=== PATIENT | female | born 1965 | race Caucasian/White ===

== ENCOUNTER 2020-03-02 14:04 | Emergency (ER) | payer BC, OTHER, SELFPAY ==
[2020-03-02 14:15] VITALS: BP 148/86; PULSE 80; RESP 18; TEMP 37.3; O2SAT 100
--- NOTE | 2020-03-02 14:21 | ED.ANIMALBIT ---
HPI - Animal Bite General Chief Complaint: Animal Bite Stated Complaint: dog bite Time Seen by Provider: 03/02/20 14:21 Source: patient Mode of arrival: ambulatory Limitations: no limitations History of Present Illness HPI narrative: Dahlia Thomas is a 54 yo female with a PMH of high cholesterol, depression, diabetes, hypothyroid, HTN, who comes to express care with dog bite to L forearm. It occurred today POA. Mild swelling around bite geovany; minor soft tissue swelling but able to move distal wrist and fingers, moderate amount of pain pt is a Diabetic and has survived breast cancer x2. Diabetes is relatively well controlled at this time Related Data Home Medications Medication Instructions Recorded Confirmed insulin glargine 100 unit/mL (3 20 unit SUB-Q DAILY 03/22/19 12/20/19 mL) subcutaneous pen metoprolol tartrate 100 mg tablet 100 mg PO Q12H 03/22/19 12/20/19 fexofenadine 180 mg tablet 180 mg PO DAILY PRN 07/18/19 12/20/19 Allergies Allergy/AdvReac Type Severity Reaction Status Date / Time carisoprodol Allergy Unknown Numbness Verified 03/02/20 14:28 tamoxifen Allergy Unknown Difficulty Verified 03/02/20 14:28 breathing Review of Systems Review of Systems: Narrative: CONSTITUTIONAL: Denies fever, chills, sweats. EYES: Denies visual changes, redness, discharge. ENT: Denies rhinorrhea, congestion, sore throat, otalgia. CARDIOVASCULAR: Denies chest pain, palpitations, edema. RESPIRATORY: Denies dyspnea, wheezing, cough GASTROINTESTINAL: Denies abdominal pain, nausea, vomiting, diarrhea. GENITOURINARY: Denies dysuria, hematuria, abnormal discharge SKIN: Denies rash or itching. Bite geovany around left forearm 8 teeth kothari to 1 on the dorsal and medial side oozing blood NEUROLOGIC: Denies numbness, or focal weakness. PSYCHIATRIC: Denies anxiety or depression. [facility] Past Medical History Medical History Fatty liver Impaired fasting glucose Pure hypertriglyceridemia Recurrent breast cancer (07/30/18) Type 2 diabetes mellitus without complication, with long-term current use of insulin Yeast vaginitis Surgical History Surgical History H/O bilateral mastectomy Family History Family History Grandparent Diabetes mellitus Acute myocardial infarction Family history of malignant neoplasm Mother Family history of hypercholesterolemia, Onset Age: 76 Hypertension, Onset Age: 76 Father Family history of hypercholesterolemia, Onset Age: 77 Hypertension Other Family history of malignant neoplasm of breast Social History Social History Smoking status: Never smoker Alcohol intake: never Comments My nurse Exam Narrative: Exam Narrative: GENERAL: This is a well-nourished, well-developed patient, in mild distress. HEAD: normocephalic, atraumatic. EYES: P Sclera clear/white. Vision is grossly intact. EARS: External ears normal, a Hearing grossly intact. NOSE: External nose normal without nasal discharge, nares without redness, no rhinorrhea. THROAT: Mucous membranes moist, NECK: Neck supple, CARDIOVASCULAR: Regular rate and rhythm without murmurs, gallops, or rubs. RESPIRATORY: Clear to auscultation. Breath sounds equal bilaterally. No wheezes, rales, or rhonchi. GASTROINTESTINAL: Abdomen soft, SKIN: warm, intact with 8th kothari from dog on left forearm close to elbow, medial side and dorsal side continue to ooze blood, intact, minimal ecchymosis NEURO: awake, alert, and oriented to person, place and time. There were no obvious focal neurologic abnormalities. Steady gait EXTREMITIES: Normal range of motion. L arm stiff, able to move wrist, executive asst strength equal BACK: Nontender without deformity Course Course Emergency Course: Patient presented for dog bite of lef
[2020-03-02] MEDS: TETANUS,DIPHTHERIA,AC PERTUSSIS ADULT (0.5 ML) BOOSTRIX IM (14:48)
== END 2020-03-02 15:03 | disposition home or self-care (01) ==
PROVIDERS: Emergency Provider Nurse Practitioner; PCP Family Medicine
DX: S51.852A Open bite of left forearm, initial encounter (principal); W54.0XXA Bitten by dog, initial encounter; Z23 Encounter for immunization; K76.0 Fatty (change of) liver, not elsewhere classified; E11.9 Type 2 diabetes mellitus without complications; E78.00 Pure hypercholesterolemia, unspecified; E03.9 Hypothyroidism, unspecified; I10 Essential (primary) hypertension; Z85.3 Personal history of malignant neoplasm of breast; Z90.13 Acquired absence of bilateral breasts and nipples
CPT/HCPCS: 90471; 90715; 99213; G0463

== ENCOUNTER 2020-03-22 06:58 | Outpatient (NON) | payer BC, OTHER, SELFPAY ==
[2020-03-22 18:22] LABS: SARS-CoV-2 RNA PCR Negative
== END 2020-03-22 06:59 ==
PROVIDERS: PCP Family Medicine; Visit Provider Family Medicine
DX: R51.9 Headache, unspecified (principal); Z20.828 Contact with and (suspected) exposure to other viral communicable diseases
CPT/HCPCS: 87635; C9803; U0003

== ENCOUNTER 2021-08-22 12:04 | Emergency (ER) | payer BC, SELFPAY ==
[2021-08-22] VITALS (11 sets, daily range): BP systolic 102–136; BP diastolic 70–90; PULSE 64–73; RESP 17–21; TEMP 36.4; O2SAT 94–100
--- NOTE | 2021-08-22 12:34 | ECG_ITS ---
Measurements Intervals [place] Rate: 65 P: 34 [place]: 202 QRS: -26 QRSD: 101 T: 9 QT: 408 QTc: 427 Interpretive Statements SINUS RHYTHM BORDERLINE AV CONDUCTION DELAY VOLTAGE CRITERIA FOR LVH BORDERLINE ECG Electronically Signed On 08-22-2021 13:05:58 CDT by Armando Mcdaniel D.O.
[2021-08-22 12:52] LABS: Basophils Absolute Auto 0.1 K/mm3 (0.0-0.1); Basophils Percent Auto 0.6 % (0.2-1.2); Eosinophils Absolute Auto 0.2 K/mm3 (0-0.3); Eosinophils Percent Auto 2.1 % (0-4.4); Hematocrit 44.1 % (37.0-47.0); Hemoglobin 14.2 g/dL (12.0-15.0); Immature Granulocyte Absolute 0.03 K/mm3 (0.00-0.031); Immature Granulocyte Percent A 0.3 % (0-0.5); Lymphocytes Absolute Auto 2.17 K/mm3 (0.9-3.2); Lymphocytes Percent Auto 25.2 % (18.3-44.2); Mean Corpuscular HGB Conc 32.2 g/dl (32-36); Mean Corpuscular Hemoglobin 30.3 pg (26-34); Mean Platelet Volume 9.3 fl (7.4-10.4); Monocytes Absolute Auto 0.6 K/mm3 (0.1-0.6); Monocytes Percent Auto 6.6 % (2.6-8.5); Neutrophils Absolute Auto 5.6 K/mm3 (1.3-6.7); Neutrophils Percent Auto 65.2 % (45.5-73.1); Platelet Count Result 316 k/mm3 (150-375); Red Blood Count 4.69 M/mm3 (4.2-5.4); Red Cell Distribution Width 13.5 % (11.5-14.5); White Blood Count 8.6 K/mm3 (4.5-10.0)
[2021-08-22 13:05] LABS: Alanine Aminotransferase 161 U/L (4-35); Albumin Level 4.3 g/dL (3.5-5.1); Alkaline Phosphatase 62 U/L (38-126); Anion Gap 10 mmol/L (8-16); Aspartate Amino Transferase 162 U/L (14-36); Bilirubin,Total 0.3 mg/dL (0.2-1.3); Blood Urea Nitrogen 14 mg/dL (7-17); Carbon Dioxide 22 mmol/L (22-30); Chloride 104 mmol/L (98-107); Estimated CRCL calculation 103 ml/min; Estimated Glomerular Filt Rate > 60; Glucose 137 mg/dL (65-110); Lipase 86 U/L (23-300); Potassium 4.3 mmol/L (3.4-5.0); Sodium 136 mmol/L (137-145)
[2021-08-22 13:16] LABS: NT Pro B Type Natriuretic Pept 34 pg/mL (5-100); Troponin I < 0.012 ng/mL (0.000-0.034)
[2021-08-22 13:22] LABS: INR 1.1; Prothrombin Time 13.7 Seconds (11.1-14.7)
[2021-08-22 14:32] LABS: Appearance Urine Clear (Clear); Bilirubin Urine Negative (Negative); Blood Urine Negative (Negative); Color Urine Yellow (Yellow); Glucose Urine UA 3+ mg/dL (Negative); Ketones Urine Negative (Negative); Leukocyte Esterase Ur 1+ LEU/UL (Negative); Nitrate Urine Negative (Negative); Protein Urine Negative (Negative); Specific Grav Ur <= 1.005 (1.001-1.035); Urobilinogen Urine 0.2 mg/dL (<2.0)
[2021-08-22 14:41] LABS: Add Urine Microscopic? YES; Bacteria Urine Trace /hpf; RBC Urine 0-2 /hpf (0-2); Squamous Epithelial Cell Urine Few /hpf (Few); WBC Urine 0-3 /hpf
[2021-08-22 14:52] LABS: SARS-CoV-2 RNA PCR Negative
--- NOTE | 2021-08-22 15:04 | ED.GENADULT ---
HPI - General Adult General Chief complaint: Unspecified Stated complaint: heart burn, sweats Time Seen by Provider: 08/22/21 12:34 Source: patient Mode of arrival: ambulatory Limitations: no limitations History of Present Illness HPI narrative: 55-year-old with a history of diabetes was recently started on Ozempic, hypertension here with complaints of not feeling well for past few days. Patient states that she saw her doctor this morning complained of chest pain with some diaphoresis patient was later referred to the ER. She denies any shortness of breath. No history of nausea or vomiting. Onset (ago): day(s) (2) Radiation: non-radiation Severity: mild Pain Consistency: constant Relieving factors: none Exacerbating factors: none Associated symptoms: denies other symptoms Related Data Home Medications Medication Instructions Recorded Confirmed fexofenadine 180 mg tablet 180 mg PO DAILY PRN 07/18/19 08/22/21 omeprazole 20 mg capsule,delayed 20 mg PO DAILY 08/02/21 08/22/21 release semaglutide 0.25 mg SUBCUT WEEKLY 08/02/21 08/22/21 Allergies Allergy/AdvReac Type Severity Reaction Status Date / Time carisoprodol Allergy Unknown Numbness Verified 08/22/21 12:33 tamoxifen Allergy Unknown Difficulty Verified 08/22/21 12:33 breathing Review of Systems Review of Systems: All systems reviewed & are unremarkable except as noted in HPI and below Constitutional: Constitutional: Reports no additional constitutional complaints Eyes: Eyes: Reports no additional eye complaints ENT: Reports system reviewed and no additional complaints, except as documented Cardiovascular: Cardiovascular: Reports no additional cardiovascular complaints Respiratory: Respiratory: Reports no additional respiratory complaints Gastrointestinal: Gastrointestinal: Reports no additional gastrointestinal complaints Musculoskeletal: Musculoskeletal: Reports no additional musculoskeletal complaints Neurologic: Reports system reviewed and no additional complaints, except as documented [facility] Past Medical History Medical History Atypical chest pain BMI 32.0-32.9,adult Controlled diabetes mellitus with hyperglycemia, with long-term current use of insulin Glucose 213 with hemoglobin A1c 11.0 on 03/17/2021. Glucose 239 with hemoglobin A1c 12.9 on 07/28/2021. Controlled diabetes mellitus with hyperglycemia, without long-term current use of insulin glucose 213 and hemoglobin A1c 11.0 on 03/17/2021 Controlled type 2 diabetes mellitus with hyperglycemia, with long-term current use of insulin Elevated liver enzymes Fatty liver Gastro-esophageal reflux disease without esophagitis Headache Hematuria, microscopic Herpesviral vesicular dermatitis Impaired fasting glucose Obesity (BMI 30.0-34.9) Pharyngitis Pure hypertriglyceridemia Recurrent breast cancer (07/30/18) Yeast vaginitis Surgical History Surgical History H/O bilateral mastectomy Family History Family History Grandparent Diabetes mellitus Acute myocardial infarction Family history of malignant neoplasm Mother Family history of hypercholesterolemia, Onset Age: 76 Hypertension, Onset Age: 76 Father Family history of hypercholesterolemia, Onset Age: 77 Hypertension Other Family history of malignant neoplasm of breast Social History Social History (Updated 08/22/21 @ 11:20 by Asia Collins MA) Smoking status: Never smoker Alcohol intake: never Substance use: never Substance use type: does not use Exam Narrative: GENERAL: Well-appearing, well-nourished, and in no acute distress. HEAD: Normocephalic, atraumatic. EYES: PERRLA and EOMI. NECK: Supple. CHEST: Clear to auscultation. No respiratory distress. HEART: Regular rate and rhythm. No murmur heard. Normal peripheral pulses. ABD
== END 2021-08-22 15:25 | disposition home or self-care (01) ==
PROVIDERS: Emergency Provider Family Medicine; PCP Family Medicine
DX: R07.89 Other chest pain (principal); Z20.822 Contact with and (suspected) exposure to COVID-19; E11.65 Type 2 diabetes mellitus with hyperglycemia; K21.9 Gastro-esophageal reflux disease without esophagitis; E66.9 Obesity, unspecified; Z68.32 Body mass index [BMI] 32.0-32.9, adult; E78.1 Pure hyperglyceridemia; Z85.3 Personal history of malignant neoplasm of breast; Z90.13 Acquired absence of bilateral breasts and nipples; Z79.899 Other long term (current) drug therapy; Z79.84 Long term (current) use of oral hypoglycemic drugs; Z79.4 Long term (current) use of insulin; R94.31 Abnormal electrocardiogram [ECG] [EKG]
CPT/HCPCS: 36415; 80053; 81001; 83690; 83880; 84484; 85025; 85610; 93005; 99284; C9803; U0003; U0005

== ENCOUNTER 2021-11-12 11:50 | Outpatient (RCR) | payer BC, SELFPAY ==
[2021-11-12 13:05] VITALS: BP 126/84; PULSE 100; TEMP 35.5; O2SAT 98
[2021-11-12] MEDS: ACETAMINOPHEN 325 MG TABLET 650 MG PO (13:08)
[2021-11-12] MEDS: FAMOTIDINE 20 MG TABLET PO (13:08)
[2021-11-12] MEDS: diphenhydrAMINE HCl CAP 25 MG CAPSULE PO (13:08)
[2021-11-12] MEDS: BEBTELOVIMAB 175 MG/2 ML VIAL IV PUSH (13:28)
[2021-11-12 14:09] VITALS: BP 116/80; PULSE 86; O2SAT 96
== END 2021-11-12 16:00 ==
LOC: AMCINF 11:50
PROVIDERS: PCP Family Medicine; Referring Provider Nurse Practitioner Family; Visit Provider Internal Medicine Hematology & Oncology
DX: U07.1 COVID-19 (principal); I10 Essential (primary) hypertension; E11.9 Type 2 diabetes mellitus without complications
CPT/HCPCS: A9270; M0222; Q0222

== ENCOUNTER 2022-04-23 14:06 | Inpatient (IN) | payer OTHER, SELFPAY ==
--- NOTE | ~2022-04-23 | CT_ITS ---
EXAMINATION: CT brain wo con DATE: 04/24/2022 17:24 INDICATION: persistent HELLER . TECHNIQUE: Computed tomography (CT) of the head was performed without intravenous contrast. The mA wa s adjusted according to patient size. Iterative reconstruction technique was employed. The dose-lengt h product was 605.33 mGy-cm. COMPARISON: 05/15/2018. FINDINGS: No acute intracranial hemorrhage or extra-axial fluid collection. No hydrocephalus, mass, or herniation. No acute ischemic infarct. Unremarkable dural venous sinus attenuation. No acute osseous abnormality. The aerated spaces are clear. IMPRESSION: No acute intracranial process. Reviewed, dictated and finalized at location [facility]. ITAL INTERN
--- NOTE | ~2022-04-23 | CT_ITS ---
Non-contrast CT scan of the Abdomen and Pelvis Clinical indication: Left flank pain Technique: 5 mm axial scans were obtained through the abdomen and pelvis without intravenous or oral contrast. Dose reduction technique was used on this scan by utilizing automated exposure control and iterative reconstruction technique. The dose-length product (DLP) was 671.75 mGy-cm. COMPARISON: 05/15/2018 Findings: Images through the lung bases reveal right basilar pulmonary scarring or atelectasis. Punctate nonobstructing right renal stone present. No left renal stone. No ureteral stone or hydronep hrosis on either side. The liver, spleen, pancreas, and adrenals appear normal. Cholecystectomy clips present. There is no a ortic aneurysm. There is no evidence of bowel obstruction. Images through the pelvis were performed. There is no evidence of ascites or lymphadenopathy. Urinary bladder unremarkable. No adnexal mass seen. Impression: Punctate nonobstructing right renal stone. Reviewed, dictated and finalized at [facility]. MOUNTER OPERATOR Impression: Punctate nonobstructing right renal stone.
[2022-04-23 14:08] VITALS: BP 143/93; PULSE 123; RESP 20; TEMP 36.7; O2SAT 97
[2022-04-23 14:15] LABS: Glucose Point of Care 370 mg/dl (65-105)
[2022-04-23 15:35] LABS: Influenza A QL RT-PCR Negative (Negative); Influenza B QL RT-PCR Negative (Negative); SARS-CoV-2 RNA PCR Negative
[2022-04-23 15:59] VITALS: BP 140/90; PULSE 113; RESP 18; TEMP 36.4; O2SAT 95
[2022-04-23 16:15] LABS: Glucose Point of Care 377 mg/dl (65-105)
[2022-04-23] MEDS: LACTATED RINGERS 1,000 ML 999 ML IV CONT (21:00)
[2022-04-23 21:29] LABS: Glucose Point of Care 349 mg/dl (65-105)
[2022-04-23 22:11] LABS: Basophils Absolute Auto 0.1 K/mm3 (0.0-0.1); Basophils Percent Auto 0.5 % (0.2-1.2); Eosinophils Percent Auto 0.1 % (0-4.4); Hematocrit 45.1 % (37.0-47.0); Hemoglobin 14.9 g/dL (12.0-15.0); Immature Granulocyte Absolute 0.06 K/mm3 (0.00-0.031); Immature Granulocyte Percent A 0.5 % (0-0.5); Lymphocytes Absolute Auto 1.68 K/mm3 (0.9-3.2); Lymphocytes Percent Auto 15.2 % (18.3-44.2); Mean Corpuscular Hemoglobin 29.9 pg (26-34); Mean Corpuscular Volume 90.6 fl (80-100); Mean Platelet Volume 9.4 fl (7.4-10.4); Monocytes Absolute Auto 1.3 K/mm3 (0.1-0.6); Monocytes Percent Auto 11.4 % (2.6-8.5); Neutrophils Percent Auto 72.3 % (45.5-73.1); Platelet Count Result 285 k/mm3 (150-375); Red Blood Count 4.98 M/mm3 (4.2-5.4); Red Cell Distribution Width 13.4 % (11.5-14.5); White Blood Count 11.1 K/mm3 (4.5-10.0)
[2022-04-23 22:56] LABS: Alanine Aminotransferase 45 U/L (6-35); Albumin Level 4.4 g/dL (3.5-5.1); Alkaline Phosphatase 63 U/L (38-126); Anion Gap 20 mmol/L (8-16); Aspartate Amino Transferase 26 U/L (14-36); Bilirubin,Total 0.8 mg/dL (0.2-1.3); Blood Urea Nitrogen 11 mg/dL (7-17); Calcium 8.9 mg/dL (8.4-10.2); Carbon Dioxide 13 mmol/L (22-30); Chloride 97 mmol/L (98-107); Estimated CRCL calculation 119 ml/min; Estimated Glomerular Filt Rate > 60; Glucose 349 mg/dL (65-110); Potassium 3.9 mmol/L (3.4-5.0); Sodium 130 mmol/L (137-145)
[2022-04-23 23:02] LABS: Add Urine Microscopic? YES; Appearance Urine Clear (Clear); Bilirubin Urine Negative (Negative); Blood Urine 1+ (Negative); Color Urine Yellow (Yellow); Glucose Urine UA 3+ mg/dL (Negative); Ketones Urine 3+ mg/dL (Negative); Leukocyte Esterase Ur 2+ LEU/UL (Negative); Nitrate Urine Positive (Negative); Protein Urine 1+ mg/dL (Negative); Specific Grav Ur 1.025 (1.001-1.035); Urobilinogen Urine 0.2 mg/dL (<2.0)
[2022-04-23 23:10] LABS: Bacteria Urine 2+ /hpf; Mucus Urine Rare /lpf; RBC Urine 21-50 /hpf (0-2); Squamous Epithelial Cell Urine Few /hpf (Few); WBC Urine >75 /hpf
[2022-04-23] MEDS: INSULIN HUMAN REGULAR (*BKC) 100 UNITS/ML 9 UNITS IV PUSH (23:28)
[2022-04-23] MEDS: METOCLOPRAMIDE HCL INJ 10 MG/2 ML VIAL IV PUSH (23:28)
[2022-04-23 23:36] LABS: Beta-Hydroxybutyrate/Acetoacetate 4.24 mmol/L (0.02-0.27)
--- NOTE | 2022-04-23 23:39 | PM.IMHP ---
H&P: HPI History of Present Illness Date/Time: 04/23/22 23:39 Chief Complaint: Abdominal pain Narrative: This is a 56-year-old female with past medical history significant for insulin-dependent diabetes mellitus, hypothyroidism, hypertension, gastroesophageal reflux disease, obesity, hypertriglyceridemia, recurrent breast cancer. Patient presents to the emergency room due to pain and burning with urination, thirst, hunger, for the last 2 weeks or so, no fevers, no rigors, no chills, no nausea, no vomiting, no cough, no sputum production. Patient was found to have high anion gap acidosis. A urinalysis was significant for numerous WBCs present. Patient is been admitted for further evaluation management and treatment. Review of Systems Review of Systems: Abdominal pain, pain or burning with urination. Constitutional: Constitutional: Denies chills, Denies fatigue, Denies fever(s), Denies malaise, Denies night sweats and Denies weakness Eyes: Eyes: Denies change in vision ENT: Denies dysphagia and Denies odynophagia Cardiovascular: Cardiovascular: Denies chest pain, Denies leg edema, Denies lightheadedness, Denies palpitations and Denies dyspnea on exertion Respiratory: Respiratory: Denies chest congestion, Denies cough, Denies pain on inspiration, Denies dyspnea, Denies dyspnea on exertion and Denies wheezing Gastrointestinal: Gastrointestinal: Denies abdominal pain, Denies dyspepsia, Denies heartburn, Denies nausea and Denies vomiting Genitourinary: Genitourinary: Reports dysuria and Denies flank pain Musculoskeletal: Musculoskeletal: Denies myalgias, Denies joint swelling and Denies muscle weakness Integumentary/Breasts: Skin/Breast: Denies rash Neurologic: Denies vertigo, Denies dizziness, Denies focal weakness and Denies Sensory deficit (Neuro) Psychiatric: Psychiatric: Reports no additional psychiatric complaints and Reports as per HPI Endocrine: Endocrine: Denies cold intolerance, Denies flushing, Denies heat intolerance, Reports polyphagia, Reports polydipsia, Reports polyuria and Denies palpitations Hematologic/Lymphatic: Hematologic/Lymphatic: Reports no additional hematologic/lymphatic complaints and Reports as per HPI Allergic/Immunologic: Allergic/Immunologic: Reports no additional allergic/immunologic complaints and Reports as per HPI [facility] Past Medical History Medical History (Updated 04/24/22 @ 05:13 by Bryn Bills MD) Atypical chest pain BMI 32.0-32.9,adult Controlled diabetes mellitus with hyperglycemia, with long-term current use of insulin Glucose 213 with hemoglobin A1c 11.0 on 03/17/2021. Glucose 239 with hemoglobin A1c 12.9 on 07/28/2021. Controlled diabetes mellitus with hyperglycemia, without long-term current use of insulin glucose 213 and hemoglobin A1c 11.0 on 03/17/2021 Controlled type 2 diabetes mellitus with hyperglycemia, with long-term current use of insulin COVID-19 Elevated liver enzymes Fatty liver Gastro-esophageal reflux disease without esophagitis Headache Hematuria, microscopic Herpesviral vesicular dermatitis Impaired fasting glucose Obesity (BMI 30.0-34.9) Pharyngitis Pure hypertriglyceridemia Recurrent breast cancer (07/30/18) Yeast vaginitis Surgical History Surgical History H/O bilateral mastectomy Family History Family History Grandparent Diabetes mellitus Acute myocardial infarction Family history of malignant neoplasm Mother Family history of hypercholesterolemia, Onset Age: 76 Hypertension, Onset Age: 76 Father Family history of hypercholesterolemia, Onset Age: 77 Hypertension Other Family history of malignant neoplasm of breast Social History Social History Smoking status: Never smoker Alcohol intake: never Substance use: never Substance use type: does not use Meds
--- NOTE | 2022-04-24 01:02 | ED.GENADULT ---
HPI - General Adult General Chief complaint: Recheck/Abnormal Lab/Rx Stated complaint: sent by PCP for kidney issues -hyperglycemia Time Seen by Provider: 04/23/22 21:36 History of Present Illness HPI narrative: Patient states that she has not been feeling well the last few days, has been nauseous, with sinus headache and some pain in her right ear, she also has pain when she urinates and some pain in her left flank. Related Data Home Medications Medication Instructions Recorded Confirmed fexofenadine 180 mg tablet 180 mg PO DAILY PRN allergies 07/18/19 11/12/21 omeprazole 20 mg capsule,delayed 20 mg PO DAILY 08/02/21 11/12/21 release Allergies Allergy/AdvReac Type Severity Reaction Status Date / Time carisoprodol Allergy Unknown Numbness Verified 11/12/21 13:15 tamoxifen Allergy Unknown Difficulty Verified 11/12/21 13:15 breathing Review of Systems Review of Systems: CONST: No fever. HEENT: Congestion, right ear pain C/V: No chest pain RESP: No cough GI: Nausea : Dysuria. M/S: Body aches SKIN: No rash. NEURO: Sinus/frontal headache PSYCH: [No depression] [facility] Past Medical History Medical History Atypical chest pain BMI 32.0-32.9,adult Controlled diabetes mellitus with hyperglycemia, with long-term current use of insulin Glucose 213 with hemoglobin A1c 11.0 on 03/17/2021. Glucose 239 with hemoglobin A1c 12.9 on 07/28/2021. Controlled diabetes mellitus with hyperglycemia, without long-term current use of insulin glucose 213 and hemoglobin A1c 11.0 on 03/17/2021 Controlled type 2 diabetes mellitus with hyperglycemia, with long-term current use of insulin COVID-19 Elevated liver enzymes Fatty liver Gastro-esophageal reflux disease without esophagitis Headache Hematuria, microscopic Herpesviral vesicular dermatitis Impaired fasting glucose Obesity (BMI 30.0-34.9) Pharyngitis Pure hypertriglyceridemia Recurrent breast cancer (07/30/18) Yeast vaginitis Surgical History Surgical History H/O bilateral mastectomy Family History Family History Grandparent Diabetes mellitus Acute myocardial infarction Family history of malignant neoplasm Mother Family history of hypercholesterolemia, Onset Age: 76 Hypertension, Onset Age: 76 Father Family history of hypercholesterolemia, Onset Age: 77 Hypertension Other Family history of malignant neoplasm of breast Social History Social History Smoking status: Never smoker Alcohol intake: never Substance use: never Substance use type: does not use Exam Narrative: EXAMINATION OF ORGAN SYSTEMS/BODY AREAS: Constitutional: Vital signs per nursing GENERAL: Appears quite tired HEAD: Normal with no signs of head trauma. EYES: EOMI, conjunctiva normal ENT: Erythematous right ear, some tenderness to palpation frontal sinuses LUNGS: Nonlabored breathing. HEART: Tachycardic ABD: [Soft], some left CVA tenderness EXT: Normal range of motion SKIN: [No rashes or lesions.] NEURO: [Alert and oriented x 3. No gross focal sensory or strength deficits.] PSYCH: Normal affect Course Vital Signs Vital signs: Vital Signs Temperature 98.1 F 04/23/22 14:08 Pulse Rate 123 H 04/23/22 14:08 Respiratory Rate 20 04/23/22 14:08 Blood Pressure 143/93 H 04/23/22 14:08 Pulse Oximetry 97 04/23/22 14:08 Oxygen Delivery Room Air 04/23/22 14:08 Temperature 97.5 F L 04/23/22 15:59 Pulse Rate 113 H 04/23/22 15:59 Respiratory Rate 18 04/23/22 15:59 Blood Pressure 140/90 04/23/22 15:59 Pulse Oximetry 95 04/23/22 15:59 Oxygen Delivery Room Air 04/23/22 14:08 Medical Decision Making [facility] Narrative Medical decision making narrative: 56-year-old female presenting with several days of symptoms including naus
[2022-04-24 01:05] LABS: Glucose Point of Care 284 mg/dl (65-105)
[2022-04-24] MEDS: INSULIN HUMAN REGULAR (*BKC) 100 UNITS in SODIUM CHLORIDE 0.9% IV 99 ML IV CONT (01:38)
[2022-04-24 01:42] LABS: Anion Gap 13 mmol/L (8-16); Blood Urea Nitrogen 10 mg/dL (7-17); Calcium 8.7 mg/dL (8.4-10.2); Carbon Dioxide 16 mmol/L (22-30); Chloride 99 mmol/L (98-107); Estimated CRCL calculation 144 ml/min; Estimated Glomerular Filt Rate > 60; Glucose 307 mg/dL (65-110); Potassium 3.7 mmol/L (3.4-5.0); Sodium 128 mmol/L (137-145)
[2022-04-24 03:04] LABS: Glucose Point of Care 289 mg/dl (65-105)
[2022-04-24] MEDS: LACTATED RINGERS 1,000 ML 999 ML IV CONT (03:19)
[2022-04-24] MEDS: INSULIN GLARGINE (*BKC) 100 UNITS/ML 22 UNITS SUB-Q (04:00)
[2022-04-24 04:47] LABS: Glucose Point of Care 241 mg/dl (65-105)
[2022-04-24] MEDS: ACETAMINOPHEN 500 MG TABLET 1000 MG PO (05:13)
[2022-04-24] MEDS: SODIUM CHLORIDE 0.9% IV 1,000 ML 100 ML IV CONT ×2 (05:25→21:44)
[2022-04-24 05:28] LABS: Anion Gap 10 mmol/L (8-16); Blood Urea Nitrogen 10 mg/dL (7-17); Calcium 8.4 mg/dL (8.4-10.2); Carbon Dioxide 23 mmol/L (22-30); Chloride 102 mmol/L (98-107); Estimated CRCL calculation 119 ml/min; Estimated Glomerular Filt Rate > 60; Glucose 238 mg/dL (65-110); Potassium 4.1 mmol/L (3.4-5.0); Sodium 135 mmol/L (137-145)
[2022-04-24 05:29] LABS: Beta-Hydroxybutyrate/Acetoacetate 1.11 mmol/L (0.02-0.27)
[2022-04-24 07:14] VITALS: BP 131/76; PULSE 92; RESP 18; TEMP 37.1; O2SAT 98
[2022-04-24 07:49] LABS: Glucose Point of Care 238 mg/dl (65-105)
[2022-04-24 07:52] VITALS: BMI 31.4
--- NOTE | 2022-04-24 08:05 | PC.NURSE ---
This patient Dahlia Thomas admitted to ED 13. oriented to room, call light placed within reach, and admission finished. awaiting room for transfer.
--- NOTE | 2022-04-24 08:30 | PC.NURSE ---
Called Dr. Antoine, he states he does not have this patient.
[2022-04-24 08:39] VITALS: BP 126/81; PULSE 96; RESP 18; O2SAT 100
[2022-04-24 08:44] LABS: Glucose Point of Care 211 mg/dl (65-105)
--- NOTE | 2022-04-24 08:45 | PC.NURSE ---
Called Rosina and she states she would call and figure out who has him
--- NOTE | 2022-04-24 09:00 | PC.NURSE ---
Dr. Moss here and states he will be taking pt. VROB for 650 mg tylenol and diabetic tray
--- NOTE | 2022-04-24 09:04 | PC.NURSE ---
Dr. Dr. Wiley to ask about down grading pt to med surg, pt anion gap is 10, last BS 211.
--- NOTE | 2022-04-24 09:35 | PC.NURSE ---
Addendum entered by Irina Redding RN 04/24/22 10:54: 0835 Original Note: Called Dr. Moss. He is unaware of having this pt as well.
[2022-04-24] MEDS: ACETAMINOPHEN 325 MG TABLET 650 MG PO ×2 (09:58→18:53)
--- NOTE | 2022-04-24 10:50 | PC.NURSE ---
called Dr. Moss for orders on pt. She states that Dr. Antoine now taking pt.
--- NOTE | 2022-04-24 10:59 | PC.NURSE ---
called Dr. Antoine for orders on pt
[2022-04-24] MEDS: cefTRIAXone 2 GM in SODIUM CHLORIDE 0.9% IV 100 ML 200 ML IVPB (11:51)
[2022-04-24 11:52] VITALS: PULSE 95
[2022-04-24] MEDS: METOPROLOL TARTRATE 50 MG TAB 100 MG PO ×2 (11:52→21:47)
[2022-04-24 14:05] LABS: Glucose Point of Care 263 mg/dl (65-105)
[2022-04-24] MEDS: INSULIN ASPART (*BKC) 100 UNITS/ML SUB-Q ×2 (14:07→16:43)
--- NOTE | 2022-04-24 16:09 | ADMGEN ---
This patient, Dahlia Thomas, was admitted to [facility] Surg Room 310-01. Patient/family oriented to hospital policies and general routines including ID bracelet, bed and alarms, visiting hours, pain management, procedures, bathroom and other care routines, personal items, smoking policy, room service/diet, and visiting hours. Information on how to activate the Rapid Response Team has been discussed. Patient/Family are encouraged to report perceived risks to care and to ask questions if they do not understand what they are told or what they should do.
[2022-04-24 16:10] VITALS: BMI 31.4
[2022-04-24 16:30] LABS: Glucose Point of Care 302 mg/dl (65-105)
[2022-04-24 16:39] VITALS: BP 144/74; PULSE 93; RESP 18; TEMP 37.7; O2SAT 94
--- NOTE | 2022-04-24 18:22 | PM.IMHP ---
H&P: HPI History of Present Illness Date/Time: 04/24/22 18:22 [facility] Past Medical History Medical History (Updated 04/24/22 @ 05:13 by Bryn Bills MD) Atypical chest pain BMI 32.0-32.9,adult Controlled diabetes mellitus with hyperglycemia, with long-term current use of insulin Glucose 213 with hemoglobin A1c 11.0 on 03/17/2021. Glucose 239 with hemoglobin A1c 12.9 on 07/28/2021. Controlled diabetes mellitus with hyperglycemia, without long-term current use of insulin glucose 213 and hemoglobin A1c 11.0 on 03/17/2021 Controlled type 2 diabetes mellitus with hyperglycemia, with long-term current use of insulin COVID-19 Elevated liver enzymes Fatty liver Gastro-esophageal reflux disease without esophagitis Headache Hematuria, microscopic Herpesviral vesicular dermatitis Impaired fasting glucose Obesity (BMI 30.0-34.9) Pharyngitis Pure hypertriglyceridemia Recurrent breast cancer (07/30/18) Yeast vaginitis Surgical History Surgical History H/O bilateral mastectomy Family History Family History Grandparent Diabetes mellitus Acute myocardial infarction Family history of malignant neoplasm Mother Family history of hypercholesterolemia, Onset Age: 76 Hypertension, Onset Age: 76 Father Family history of hypercholesterolemia, Onset Age: 77 Hypertension Other Family history of malignant neoplasm of breast Social History Social History Smoking status: Never smoker Second hand tobacco smoke exposure: No Alcohol intake: never Substance use: never Substance use type: does not use Lack of Transportation: No Lack of Food: Never True Current Housing: I Have Housing Concerned About Future Housing: No Difficulty Paying Gas/Electric Bills: No Difficulty Paying for Meds: No Currently Unemployed: No Education: High School Diploma/GED Difficulty w/ Childcare or Family Care: No Spiritual care concerns: No Meds Home Medications and Allergies Home Medications Medication Instructions Recorded Confirmed Type lancets 30 gauge (PigeonlyTouch [place] #100 ea 05/21/19 11/12/21 Rx Plus Lancet) cyclobenzaprine 10 mg tablet 10 mg PO TID PRN muscle spasm #90 11/30/21 01/04/23 Rx tabs levothyroxine 50 mcg tablet 50 mcg PO . Q.a.m. #90 tabs 03/20/21 04/24/22 Rx escitalopram oxalate 20 mg tablet 20 mg PO DAILY #90 tabs 04/09/21 04/24/22 Rx (Lexapro) blood sugar diagnostic #100 ea 06/18/21 11/12/21 Rx pen needle, diabetic 33 gauge x #100 ea 06/18/21 11/12/21 Rx 3/16 (Comfort EZ Pen [place]) blood sugar diagnostic (OneTouch #100 ea 07/09/21 11/12/21 Rx Ultra Test strips) blood-glucose meter (OneTouch #1 ea 07/09/21 11/12/21 Rx Ultra2 Meter) omeprazole 20 mg capsule,delayed 20 mg PO DAILY 08/02/21 04/24/22 History release quetiapine 50 mg tablet 25 mg PO QHS #30 tabs 08/02/21 04/24/22 Rx metoprolol tartrate 100 mg tablet 100 mg PO Q12H #180 tabs 09/10/21 04/24/22 Rx atorvastatin 10 mg tablet 10 mg PO DAILY #90 tabs 11/26/21 04/24/22 Rx amitriptyline 10 mg tablet 20 mg PO .Q.h.s. #180 tabs 11/28/21 04/24/22 Rx telmisartan 40 mg tablet 40 mg PO DAILY #90 tabs 12/10/21 04/24/22 Rx metformin 500 mg tablet,extended 2,000 mg PO DAILY #360 tabs 02/05/22 04/24/22 Rx release 24 hr semaglutide 0.25 mg or 0.5 mg (2 0.25 mg (0.2 mL) subcut WEEKLY 04/23/22 04/24/22 Rx mg/1.5 mL) subcutaneous pen #1.5 mL injector (Ozempic) insulin glargine 100 unit/mL (3 35 unit subcut QAM 04/24/22 04/24/22 History mL) subcutaneous pen (Lantus Solostar U-100 Insulin) Allergies Allergy/AdvReac Type Severity Reaction Status Date / Time carisoprodol Allergy Unknown Numbness Verified 04/24/22 07:43 tamoxifen Allergy Unknown Difficulty Verified 04/24/22 07:43 breathing Vital Signs Vital Signs - 24 hr 04/24/22
[2022-04-24] MEDS: AMITRIPTYLINE HCL 10 MG TABLET 20 MG PO (21:46)
[2022-04-24 21:47] VITALS: PULSE 90
[2022-04-24] MEDS: CYCLOBENZAPRINE HCL 10 MG TABLET PO (21:50)
[2022-04-24 22:00] VITALS: BP 112/60; PULSE 74; RESP 16; TEMP 37.2; O2SAT 97
[2022-04-24 22:28] LABS: Glucose Point of Care 265 mg/dl (65-105)
[2022-04-25] MEDS: ACETAMINOPHEN 325 MG TABLET 650 MG PO ×2 (03:31→20:39)
[2022-04-25] MEDS: LEVOTHYROXINE SODIUM 50 MCG TABLET PO (05:49)
[2022-04-25 06:00] VITALS: BP 108/66; PULSE 76; RESP 16; TEMP 37.1; O2SAT 94
[2022-04-25 06:24] LABS: Hematocrit 37.3 % (37.0-47.0); Mean Corpuscular HGB Conc 32.2 g/dl (32-36); Mean Corpuscular Hemoglobin 29.8 pg (26-34); Mean Corpuscular Volume 92.6 fl (80-100); Mean Platelet Volume 9.9 fl (7.4-10.4); Platelet Count Result 236 k/mm3 (150-375); Red Blood Count 4.03 M/mm3 (4.2-5.4); Red Cell Distribution Width 13.6 % (11.5-14.5); White Blood Count 8.6 K/mm3 (4.5-10.0)
[2022-04-25 06:40] LABS: Anion Gap 12 mmol/L (8-16); Blood Urea Nitrogen 8 mg/dL (7-17); Calcium 7.7 mg/dL (8.4-10.2); Carbon Dioxide 16 mmol/L (22-30); Chloride 107 mmol/L (98-107); Estimated CRCL calculation 144 ml/min; Estimated Glomerular Filt Rate > 60; Glucose 236 mg/dL (65-110); Magnesium 2.2 mg/dL (1.6-2.3); Potassium 3.2 mmol/L (3.4-5.0); Sodium 135 mmol/L (137-145)
[2022-04-25 07:39] LABS: Glucose Point of Care 216 mg/dl (65-105)
[2022-04-25] MEDS: INSULIN ASPART (*BKC) 100 UNITS/ML SUB-Q ×3 (09:28→17:29)
[2022-04-25 09:29] VITALS: PULSE 76
[2022-04-25] MEDS: METOPROLOL TARTRATE 50 MG TAB 100 MG PO ×2 (09:29→20:39)
[2022-04-25] MEDS: ESCITALOPRAM OXALATE 10 MG TABLET 20 MG PO (09:29)
[2022-04-25] MEDS: CYCLOBENZAPRINE HCL 10 MG TABLET PO ×2 (09:30→20:40)
[2022-04-25] MEDS: metFORMIN HCL XR 500 MG TAB.SR.24H 2000 MG PO (09:30)
[2022-04-25] MEDS: TELMISARTAN 40 MG TABLET PO (09:31)
[2022-04-25] MEDS: PANTOPRAZOLE 40 MG TABLET PO (09:31)
[2022-04-25] MEDS: ENOXAPARIN 40 MG/0.4 ML SYRINGE SUB-Q (09:31)
[2022-04-25] MEDS: ATORVASTATIN 10 MG TABLET PO (09:31)
[2022-04-25] MEDS: SODIUM CHLORIDE 0.9% IV 1,000 ML 100 ML IV CONT ×2 (09:37→20:32)
--- NOTE | 2022-04-25 10:37 | PCDIET ---
Nutrition Consult: Spoke with patient today. Diet orders: DBCC, tolerating diet. Last HbA1c reported 07/28/21 12.4%. Patient is interested in outpatient diabetic education, referral started. Discussed diet/Patient instructions attached. All discussed with Dr. Antoine today. Thank you for the consult.
[2022-04-25] MEDS: POTASSIUM CHLORIDE 20 MEQ TABLET 40 MEQ PO (11:17)
[2022-04-25 11:37] LABS: Glucose Point of Care 249 mg/dl (65-105)
--- NOTE | 2022-04-25 13:36 | PM.IMPN ---
Progress Note: A&P Assessment and Plan (1) DKA (diabetic ketoacidosis): Code(s): E11.10 - Type 2 diabetes mellitus with ketoacidosis without coma Status: Acute (2) UTI (urinary tract infection): Code(s): N39.0 - Urinary tract infection, site not specified Status: Acute (3) Irritable bowel syndrome with constipation and diarrhea: Code(s): K58.2 - Mixed irritable bowel syndrome Status: Acute (4) Gastro-esophageal reflux disease without esophagitis: Code(s): K21.9 - Gastro-esophageal reflux disease without esophagitis Status: Acute (5) Chronic right-sided low back pain with right-sided sciatica: Code(s): M54.41 - Lumbago with sciatica, right side; G89.29 - Other chronic pain Status: Acute (6) Obesity (BMI 30.0-34.9): Code(s): E66.9 - Obesity, unspecified Status: Acute (7) Fatty liver: Code(s): K76.0 - Fatty (change of) liver, not elsewhere classified Status: Acute (8) Chronic anxiety: Code(s): F41.9 - Anxiety disorder, unspecified Status: Acute (9) Chronic depression: Code(s): F32.9 - Major depressive disorder, single episode, unspecified Status: Acute (10) Malignant neoplasm of unspecified site of left female breast: Code(s): C50.912 - Malignant neoplasm of unspecified site of left female breast Status: Acute (11) MOORE (nonalcoholic steatohepatitis): Code(s): K75.81 - Nonalcoholic steatohepatitis (MOORE) Status: Acute Plan Chief Complaint: Abdominal pain HPI-Narrative: This is a 56-year-old female with past medical history significant for insulin-dependent diabetes mellitus, hypothyroidism, hypertension, gastroesophageal reflux disease, obesity, hypertriglyceridemia, recurrent breast cancer.? Patient presents to the emergency room due to pain and burning with urination, thirst, hunger, for the last 2 weeks or so, no fevers, no rigors, no chills, no nausea, no vomiting, no cough, no sputum production.? Patient was found to have high anion gap acidosis.? A urinalysis was significant for numerous WBCs present.? Patient is been admitted for further evaluation management and treatment. 04/24/2021 interval history: patient was started on IV insulin in ER and blood sugars trended down AG gap closed, patient did not need to be transferred to ICU and was seen on medical floor, patient does have complaints dysuria and her urine is also suspicious for UTI patient is started on ceftriaxone, currently patient c/o HELLER there are not other related complains, was given Tylenol will minimal relief, will do CT scan of the head to further evaluate, will follow up urine culture and further recommendation to follow. Subjective Date/time seen: 04/24/22 13:36 Chief Complaint: Abdominal pain HPI-Narrative: This is a 56-year-old female with past medical history significant for insulin-dependent diabetes mellitus, hypothyroidism, hypertension, gastroesophageal reflux disease, obesity, hypertriglyceridemia, recurrent breast cancer.? Patient presents to the emergency room due to pain and burning with urination, thirst, hunger, for the last 2 weeks or so, no fevers, no rigors, no chills, no nausea, no vomiting, no cough, no sputum production.? Patient was found to have high anion gap acidosis.? A urinalysis was significant for numerous WBCs present.? Patient is been admitted for further evaluation management and treatment. 04/24/2021 interval history: patient was started on IV insulin in ER and blood sugars trended down AG gap closed, patient did not need to be transferred to ICU and was seen on medical floor, patient does have complaints dysuria and her urine is also suspicious for UTI patient is started on ceftriaxone, currently patient c/o HELLER there are not other related complains, was given Tylenol will minimal relief, will do CT scan of the head to further evaluate, will follow up urine culture and further recommendation to follow.
--- NOTE | 2022-04-25 13:47 | PM.IMPN ---
Progress Note: A&P Assessment and Plan (1) DKA (diabetic ketoacidosis): Code(s): E11.10 - Type 2 diabetes mellitus with ketoacidosis without coma Status: Acute (2) UTI (urinary tract infection): Code(s): N39.0 - Urinary tract infection, site not specified Status: Acute (3) Irritable bowel syndrome with constipation and diarrhea: Code(s): K58.2 - Mixed irritable bowel syndrome Status: Acute (4) Gastro-esophageal reflux disease without esophagitis: Code(s): K21.9 - Gastro-esophageal reflux disease without esophagitis Status: Acute (5) Chronic right-sided low back pain with right-sided sciatica: Code(s): M54.41 - Lumbago with sciatica, right side; G89.29 - Other chronic pain Status: Acute (6) Obesity (BMI 30.0-34.9): Code(s): E66.9 - Obesity, unspecified Status: Acute (7) Fatty liver: Code(s): K76.0 - Fatty (change of) liver, not elsewhere classified Status: Acute (8) Chronic anxiety: Code(s): F41.9 - Anxiety disorder, unspecified Status: Acute (9) Chronic depression: Code(s): F32.9 - Major depressive disorder, single episode, unspecified Status: Acute (10) Malignant neoplasm of unspecified site of left female breast: Code(s): C50.912 - Malignant neoplasm of unspecified site of left female breast Status: Acute (11) MOORE (nonalcoholic steatohepatitis): Code(s): K75.81 - Nonalcoholic steatohepatitis (MOORE) Status: Acute Plan Chief Complaint: Abdominal pain HPI-Narrative: This is a 56-year-old female with past medical history significant for insulin-dependent diabetes mellitus, hypothyroidism, hypertension, gastroesophageal reflux disease, obesity, hypertriglyceridemia, recurrent breast cancer.? Patient presents to the emergency room due to pain and burning with urination, thirst, hunger, for the last 2 weeks or so, no fevers, no rigors, no chills, no nausea, no vomiting, no cough, no sputum production.? Patient was found to have high anion gap acidosis.? A urinalysis was significant for numerous WBCs present.? Patient is been admitted for further evaluation management and treatment. 04/25/2021 interval history: patient was started on IV insulin in ER and blood sugars trended down AG gap closed, patient did not need to be transferred to ICU and was seen on medical floor, patient does have complaints dysuria and her urine is also suspicious for UTI patient is started on ceftriaxone, patient urine is growing E coli will continue ceftriaxone will follow-up on sensitivity and further recommendation to follow, patient had c/o HELLER there are no other related complains, was given Tylenol with minimal relief, to further evaluate patient had a CT scan of the head essentially normal, patient still has headache to most likely related stress being in the hospital possibly sinus allergies, will continue to monitor, will have PT OT evaluate the patient and further recommendation to follow Subjective Date/time seen: 04/25/22 13:47 HPI-Narrative: This is a 56-year-old female with past medical history significant for insulin-dependent diabetes mellitus, hypothyroidism, hypertension, gastroesophageal reflux disease, obesity, hypertriglyceridemia, recurrent breast cancer.? Patient presents to the emergency room due to pain and burning with urination, thirst, hunger, for the last 2 weeks or so, no fevers, no rigors, no chills, no nausea, no vomiting, no cough, no sputum production.? Patient was found to have high anion gap acidosis.? A urinalysis was significant for numerous WBCs present.? Patient is been admitted for further evaluation management and treatment. 04/25/2021 interval history: patient was started on IV insulin in ER and blood sugars trended down AG gap closed, patient did not need to be transferred to ICU and was seen on medical floor, patient does have complaints dysuria and her urine is also suspicious for UTI pat
[2022-04-25 14:00] VITALS: BP 151/97; PULSE 78; RESP 16; TEMP 37.1; O2SAT 93
[2022-04-25] MEDS: cefTRIAXone 2 GM in SODIUM CHLORIDE 0.9% IV 100 ML 200 ML IVPB (14:44)
[2022-04-25 16:43] LABS: Glucose Point of Care 264 mg/dl (65-105)
[2022-04-25 20:39] VITALS: PULSE 78
[2022-04-25] MEDS: QUEtiapine FUMARATE 25 MG TABLET PO (20:39)
[2022-04-25] MEDS: AMITRIPTYLINE HCL 10 MG TABLET 20 MG PO (20:39)
[2022-04-25 21:14] LABS: Glucose Point of Care 267 mg/dl (65-105)
[2022-04-25] MEDS: LORATADINE/PSEUDOEPHEDRINE (*CRX) 10/240 MG TABLET ER 24 HR 1 TAB PO (21:57)
[2022-04-25 22:00] VITALS: BP 138/83; PULSE 92; RESP 18; TEMP 36.4; O2SAT 95
[2022-04-26] MEDS: SODIUM CHLORIDE 0.9% IV 1,000 ML 100 ML IV CONT (05:57)
[2022-04-26] MEDS: LEVOTHYROXINE SODIUM 50 MCG TABLET PO (05:57)
[2022-04-26 06:00] VITALS: BP 136/86; PULSE 84; RESP 18; TEMP 36.7; O2SAT 95
[2022-04-26 07:06] LABS: Hematocrit 40.2 % (37.0-47.0); Hemoglobin 13.1 g/dL (12.0-15.0); Mean Corpuscular HGB Conc 32.6 g/dl (32-36); Mean Corpuscular Hemoglobin 28.9 pg (26-34); Mean Corpuscular Volume 88.7 fl (80-100); Mean Platelet Volume 9.8 fl (7.4-10.4); Platelet Count Result 309 k/mm3 (150-375); Red Blood Count 4.53 M/mm3 (4.2-5.4); Red Cell Distribution Width 13.7 % (11.5-14.5); White Blood Count 7.6 K/mm3 (4.5-10.0)
[2022-04-26 07:32] LABS: Anion Gap 8 mmol/L (8-16); Blood Urea Nitrogen 7 mg/dL (7-17); Calcium 8.3 mg/dL (8.4-10.2); Carbon Dioxide 22 mmol/L (22-30); Chloride 103 mmol/L (98-107); Estimated CRCL calculation 144 ml/min; Estimated Glomerular Filt Rate > 60; Glucose 243 mg/dL (65-110); Potassium 3.3 mmol/L (3.4-5.0); Sodium 133 mmol/L (137-145)
[2022-04-26 07:56] LABS: Glucose Point of Care 241 mg/dl (65-105)
[2022-04-26] MEDS: INSULIN ASPART (*BKC) 100 UNITS/ML SUB-Q (08:28)
[2022-04-26 08:29] VITALS: PULSE 84
[2022-04-26] MEDS: ATORVASTATIN 10 MG TABLET PO (08:29)
[2022-04-26] MEDS: PANTOPRAZOLE 40 MG TABLET PO (08:29)
[2022-04-26] MEDS: ENOXAPARIN 40 MG/0.4 ML SYRINGE SUB-Q (08:29)
[2022-04-26] MEDS: metFORMIN HCL XR 500 MG TAB.SR.24H 2000 MG PO (08:29)
[2022-04-26] MEDS: TELMISARTAN 40 MG TABLET PO (08:29)
[2022-04-26] MEDS: METOPROLOL TARTRATE 50 MG TAB 100 MG PO (08:29)
[2022-04-26] MEDS: ESCITALOPRAM OXALATE 10 MG TABLET 20 MG PO (08:30)
[2022-04-26] MEDS: POTASSIUM CHLORIDE 20 MEQ TABLET 40 MEQ PO (09:34)
[2022-04-26] MEDS: cefTRIAXone 2 GM in SODIUM CHLORIDE 0.9% IV 100 ML 200 ML IVPB (11:23)
--- NOTE | 2022-04-26 11:30 | PCPTNOTE ---
Attempted PT evaluation, Pt refused stating she does not need PT services. Per RN, pt is independent in room.
[2022-04-26 11:57] LABS: Glucose Point of Care 210 mg/dl (65-105)
--- NOTE | 2022-04-26 12:00 | PM.DS ---
DS: Admitting Diagnosis Discharge Date 04/26/2022 Admitting Diagnosis abdominal pain DS: Discharge Diagnosis Discharge Diagnosis (1) DKA (diabetic ketoacidosis): Code(s): E11.10 - Type 2 diabetes mellitus with ketoacidosis without coma Status: Acute (2) UTI (urinary tract infection): Code(s): N39.0 - Urinary tract infection, site not specified Status: Acute (3) Irritable bowel syndrome with constipation and diarrhea: Code(s): K58.2 - Mixed irritable bowel syndrome Status: Acute (4) Gastro-esophageal reflux disease without esophagitis: Code(s): K21.9 - Gastro-esophageal reflux disease without esophagitis Status: Acute (5) Chronic right-sided low back pain with right-sided sciatica: Code(s): M54.41 - Lumbago with sciatica, right side; G89.29 - Other chronic pain Status: Acute (6) Obesity (BMI 30.0-34.9): Code(s): E66.9 - Obesity, unspecified Status: Acute (7) Fatty liver: Code(s): K76.0 - Fatty (change of) liver, not elsewhere classified Status: Inactive (8) Chronic anxiety: Code(s): F41.9 - Anxiety disorder, unspecified Status: Acute (9) Chronic depression: Code(s): F32.9 - Major depressive disorder, single episode, unspecified Status: Acute (10) Malignant neoplasm of unspecified site of left female breast: Code(s): C50.912 - Malignant neoplasm of unspecified site of left female breast Status: Acute (11) MOORE (nonalcoholic steatohepatitis): Code(s): K75.81 - Nonalcoholic steatohepatitis (MOORE) Status: Acute Plan Chief Complaint: Abdominal pain HPI-Narrative: This is a 56-year-old female with past medical history significant for insulin-dependent diabetes mellitus, hypothyroidism, hypertension, gastroesophageal reflux disease, obesity, hypertriglyceridemia, recurrent breast cancer.? Patient presents to the emergency room due to pain and burning with urination, thirst, hunger, for the last 2 weeks or so, no fevers, no rigors, no chills, no nausea, no vomiting, no cough, no sputum production.? Patient was found to have high anion gap acidosis.? A urinalysis was significant for numerous WBCs present.? Patient is been admitted for further evaluation management and treatment. 04/25/2021 interval history: patient was started on IV insulin in ER and blood sugars trended down AG gap closed, patient did not need to be transferred to ICU and was seen on medical floor, patient does have complaints dysuria and her urine is also suspicious for UTI patient is started on ceftriaxone, patient urine is growing E coli will continue ceftriaxone will follow-up on sensitivity and further recommendation to follow, patient had c/o HELLER there are no other related complains, was given Tylenol with minimal relief, to further evaluate patient had a CT scan of the head essentially normal, patient still has headache to most likely related stress being in the hospital possibly sinus allergies, will continue to monitor, will have PT OT evaluate the patient and further recommendation to follow DS: Summary Hospital Course Reason for hospitalization: Chief Complaint: Abdominal pain Narrative: This is a 56-year-old female with past medical history significant for insulin-dependent diabetes mellitus, hypothyroidism, hypertension, gastroesophageal reflux disease, obesity, hypertriglyceridemia, recurrent breast cancer.? Patient presents to the emergency room due to pain and burning with urination, thirst, hunger, for the last 2 weeks or so, no fevers, no rigors, no chills, no nausea, no vomiting, no cough, no sputum production.? Patient was found to have high anion gap acidosis.? A urinalysis was significant for numerous WBCs present.? Patient is been admitted for further evaluation management and treatment. Hospital Course: patient was started on IV insulin in ER and blood sugars trended down AG gap closed, patient did not need to be
[2022-04-26 12:10] VITALS: BMI 31.4
--- NOTE | 2022-04-29 07:15 | PC.NURSE ---
Outpatient initial DSMT and MNT started for pt. [facility] and Dr. [facility].
== END 2022-04-26 14:35 | disposition home or self-care (01) | DRG 638 ==
LOC: ANHED 04-24 01:29 → ANH3MEDSUR 04-24 11:40
PROVIDERS: Emergency Medicine; Admitting Provider Internal Medicine; Emergency Provider Emergency Medicine; PCP Family Medicine; Visit Provider Family Medicine
DX: E11.10 Type 2 diabetes mellitus with ketoacidosis without coma (principal); N39.0 Urinary tract infection, site not specified; K21.9 Gastro-esophageal reflux disease without esophagitis; B96.20 Unspecified Escherichia coli [E. coli] as the cause of diseases classified elsewhere; H66.90 Otitis media, unspecified, unspecified ear; J32.9 Chronic sinusitis, unspecified; E66.9 Obesity, unspecified; E78.1 Pure hyperglyceridemia; E03.9 Hypothyroidism, unspecified; I10 Essential (primary) hypertension; G89.29 Other chronic pain; F41.9 Anxiety disorder, unspecified; F32.9 Major depressive disorder, single episode, unspecified; K58.2 Mixed irritable bowel syndrome; K75.81 Nonalcoholic steatohepatitis (NASH); M54.41 Lumbago with sciatica, right side; Z68.31 Body mass index [BMI] 31.0-31.9, adult; Z79.4 Long term (current) use of insulin; Z79.84 Long term (current) use of oral hypoglycemic drugs; Z20.822 Contact with and (suspected) exposure to COVID-19; Z90.13 Acquired absence of bilateral breasts and nipples; Z85.3 Personal history of malignant neoplasm of breast; Z86.16 Personal history of COVID-19
CPT/HCPCS: 36415; 70450; 74176; 80048; 80053; 81001; 82010; 82948; 83735; 85025; 85027; 87077; 87086; 87186; 87636; 96361; 96365; 96367; 96375; 97165; 99285; A9270; J0131; J0696; J1650; J1815; J2765; J7030; J7120

== ENCOUNTER 2022-05-23 07:55 | Outpatient (RCR) | payer OTHER, SELFPAY | END 2022-08-12 12:36 | disposition home or self-care (01) | LOC: ANHDMC 07:55 | PROVIDERS: PCP Family Medicine; Visit Provider Family Medicine | DX: E11.65 Type 2 diabetes mellitus with hyperglycemia (principal); E11.10 Type 2 diabetes mellitus with ketoacidosis without coma; Z71.3 Dietary counseling and surveillance | CPT/HCPCS: 97802 ==

== ENCOUNTER 2022-07-17 17:07 | Emergency (ER) | payer OTHER, SELFPAY ==
--- NOTE | ~2022-07-17 | CT_ITS ---
EXAMINATION: CT abdomen pelvis w con INDICATION: Right flank pain after fall TECHNIQUE: Computed tomographic images of the abdomen and pelvis were obtained after the administrati on of 100 cc of Omnipaque 350 intravenous contrast. The dose-length product (DLP) was 891.43 mGy-cm. Automated exposure control and iterative reconstruction technique were employed. COMPARISON: 04/24/2022 FINDINGS: Minimal dependent atelectasis is present in the lung bases. The heart size is normal. The g allbladder is surgically absent. There is mild enlargement of the common bile duct and central intrah epatic ducts which is likely due to post cholecystectomy state. There is focal fatty infiltration of the liver near the gallbladder fossa. The spleen, pancreas, and adrenal glands are normal. There is a subtle area of hypoattenuation in the lateral aspect of the right kidney lower pole. The left kidney is unremarkable. No pathologically enlarged abdominal or pelvic lymph nodes are identified. No free intraperitoneal gas or evidence of bowel obstruction. There is mild distention of the urinary bladder . There is moderate lumbar spondylosis at L5-S1. IMPRESSION: 1. Focal area of parenchymal hypoattenuation in the right mid kidney which could reflect a small pare nchymal contusion (grade 1 injury). Reviewed, dictated and finalized at location F. IMPRESSION: 1. Focal area of parenchymal hypoattenuation in the right mid kidney which coul d reflect a small parenchymal contusion (grade 1 injury).
--- NOTE | ~2022-07-17 | CT_ITS ---
EXAMINATION: CT brain wo con INDICATION: Head injury COMPARISON: 04/24/2022 TECHNIQUE: Standard unenhanced head CT. The dose-length product (DLP) was 605.33 mGy-cm. The mA was a djusted according to patient size. Iterative reconstruction technique was employed. FINDINGS: There is no intracranial hemorrhage, acute infarction, or abnormal mass lesion. The ventric les are normal. There is no abnormal mass effect or midline shift. The rodríguez-white matter differentiat ion is normal. The basal cisterns are patent. The orbits are normal. The paranasal sinuses, mastoids and calvarium are normal. IMPRESSION: 1. No acute intracranial abnormality. Reviewed, dictated and finalized at location F.
--- NOTE | ~2022-07-17 | XR_ITS ---
EXAMINATION: XR hand LT min 3V INDICATION: Left hand pain and swelling TECHNIQUE: Three views of the left hand are obtained. COMPARISON: None available FINDINGS: Bone alignment is normal. There is no fracture. The joint spaces are unremarkable. The soft tissues are normal. IMPRESSION: 1. No acute osseous abnormality. Reviewed, dictated and finalized at location F.
[2022-07-17 17:47] VITALS: BP 137/84; PULSE 95; RESP 16; TEMP 36.1; O2SAT 100
--- NOTE | 2022-07-17 18:44 | ECG_ITS ---
Measurements Intervals [place] Rate: 80 P: 34 RI: 156 QRS: -31 QRSD: 105 T: 37 QT: 393 QTc: 456 Interpretive Statements SINUS RHYTHM LEFT AXIS DEVIATION BORDERLINE ECG COMPARED TO ECG 08/22/2021 12:46:19 LEFT-AXIS DEVIATION NOW PRESENT Electronically Signed On 07-18-2022 7:53:21 CDT by Armando Mcdaniel D.O.
--- NOTE | 2022-07-17 18:53 | PC.NURSE ---
Patient out of dept for imaging
--- NOTE | 2022-07-17 19:17 | ED.GENADULT ---
HPI - General Adult General Chief complaint: Fall Stated complaint: mechanical fall/hi/nausea/near syncopal Time Seen by Provider: 07/17/22 18:26 History of Present Illness HPI narrative: 56-year-old female presented to the emergency department for evaluation of headache and multiple injuries after having a ground-level fall last night. Patient states at nighttime she does take medications to help her sleep. Patient woke up in the night and was concerned there was something going on with her dog and got up and she was caught in her sheets causing her to fall and strike her face on a dresser. Patient also reports that she struck her back on the bed. Patient was complaining of left hand pain, right shoulder pain, headache dizziness and left thigh pain. Patient states today she did have an episode of near syncope and had some associated dizziness and lightheadedness. Patient states she does not take any blood thinners. Related Data Home Medications Medication Instructions Recorded Confirmed omeprazole 20 mg capsule,delayed 20 mg PO DAILY 08/02/21 05/27/22 release Allergies Allergy/AdvReac Type Severity Reaction Status Date / Time carisoprodol Allergy Unknown Numbness Verified 04/24/22 07:43 tamoxifen Allergy Unknown Difficulty Verified 04/24/22 07:43 breathing Review of Systems Review of Systems: All systems reviewed & are unremarkable except as noted in HPI and below PMFSH Past Medical History Medical History (Updated 07/17/22 @ 21:34 by Rj Chance MD) Atypical chest pain BMI 29.0-29.9,adult BMI 32.0-32.9,adult Controlled diabetes mellitus with hyperglycemia, with long-term current use of insulin Glucose 213 with hemoglobin A1c 11.0 on 03/17/2021. Glucose 239 with hemoglobin A1c 12.9 on 07/28/2021. Controlled diabetes mellitus with hyperglycemia, without long-term current use of insulin glucose 213 and hemoglobin A1c 11.0 on 03/17/2021 Controlled type 2 diabetes mellitus with hyperglycemia, with long-term current use of insulin COVID-19 Elevated liver enzymes Gastro-esophageal reflux disease without esophagitis Headache Hematuria, microscopic Herpesviral vesicular dermatitis Impaired fasting glucose Obesity (BMI 30.0-34.9) Overweight (BMI 25.0-29.9) Pharyngitis Pure hypertriglyceridemia Recurrent breast cancer (07/30/18) Yeast vaginitis Surgical History Surgical History H/O bilateral mastectomy Family History Family History Grandparent Diabetes mellitus Acute myocardial infarction Family history of malignant neoplasm Mother Family history of hypercholesterolemia, Onset Age: 76 Hypertension, Onset Age: 76 Father Family history of hypercholesterolemia, Onset Age: 77 Hypertension Other Family history of malignant neoplasm of breast Social History Social History Smoking status: Never smoker Second hand tobacco smoke exposure: No Alcohol intake: never Substance use: never Substance use type: does not use Lack of Transportation: No Lack of Food: Never True Current Housing: I Have Housing Concerned About Future Housing: No Difficulty Paying Gas/Electric Bills: No Difficulty Paying for Meds: No Currently Unemployed: No Education: High School Diploma/GED Difficulty w/ Childcare or Family Care: No Spiritual care concerns: No Exam Narrative: APPEARANCE: Well appearing, no pain, no distress, well-nourished. HEAD: normocephalic, atraumatic. EYES: PERRLA/EOMI, conjunctivae clear. NOSE: Normal no drainage. Abrasion EARS:TMS clear with good light reflex. THROAT: Pharynx clear, no exudate. NECK: Supple. No adenopathy, no masses. RESPIRATORY: Airway patent, respirations nonlabored. Clear to auscultation bilaterally, no rales, rhonchi, wheezing. CARDIOVASCULAR: Regular rate and rhythm withou
[2022-07-17 19:23] LABS: Basophils Percent Auto 0.4 % (0.2-1.2); Eosinophils Absolute Auto 0.1 K/mm3 (0-0.3); Eosinophils Percent Auto 1.5 % (0-4.4); Hematocrit 39.5 % (37.0-47.0); Hemoglobin 12.9 g/dL (12.0-15.0); Immature Granulocyte Absolute 0.03 K/mm3 (0.00-0.031); Immature Granulocyte Percent A 0.3 % (0-0.5); Lymphocytes Absolute Auto 3.55 K/mm3 (0.9-3.2); Lymphocytes Percent Auto 38.3 % (18.3-44.2); Mean Corpuscular HGB Conc 32.7 g/dl (32-36); Mean Platelet Volume 8.8 fl (7.4-10.4); Monocytes Absolute Auto 0.6 K/mm3 (0.1-0.6); Monocytes Percent Auto 6.6 % (2.6-8.5); Neutrophils Absolute Auto 4.9 K/mm3 (1.3-6.7); Neutrophils Percent Auto 52.9 % (45.5-73.1); Platelet Count Result 341 k/mm3 (150-375); Red Blood Count 4.16 M/mm3 (4.2-5.4); Red Cell Distribution Width 14.8 % (11.5-14.5); White Blood Count 9.3 K/mm3 (4.5-10.0)
[2022-07-17] MEDS: HYDROmorphone HCL INJ (*CRX) 1 MG/ML SYR 0.5 MG IV PUSH (19:27)
[2022-07-17] MEDS: SODIUM CHLORIDE 0.9% IV 1,000 ML 999 ML IV CONT (19:27)
[2022-07-17 19:33] LABS: Alanine Aminotransferase 79 U/L (6-35); Albumin Level 4.5 g/dL (3.5-5.1); Alkaline Phosphatase 52 U/L (38-126); Anion Gap 9 mmol/L (8-16); Aspartate Amino Transferase 71 U/L (14-36); Bilirubin,Total 0.5 mg/dL (0.2-1.3); Blood Urea Nitrogen 16 mg/dL (7-17); Calcium 9.4 mg/dL (8.4-10.2); Carbon Dioxide 27 mmol/L (22-30); Chloride 102 mmol/L (98-107); Estimated CRCL calculation 101 ml/min; Estimated Glomerular Filt Rate > 60; Glucose 89 mg/dL (65-110); Potassium 3.8 mmol/L (3.4-5.0); Sodium 138 mmol/L (137-145)
[2022-07-17 19:35] VITALS: BP 125/76; PULSE 88; RESP 19; O2SAT 98
[2022-07-17 19:36] LABS: INR 1.1; Partial Thromboplastin Time 28.2 SECONDS (22.3-36.8); Prothrombin Time 13.7 Seconds (11.1-14.7)
[2022-07-17 20:59] VITALS: BP 141/82; PULSE 89; RESP 19; O2SAT 100
[2022-07-17 21:19] LABS: Appearance Urine Clear (Clear); Bacteria Urine None Seen /hpf; Bilirubin Urine Negative (Negative); Blood Urine Trace (Negative); Color Urine Yellow (Yellow); Glucose Urine UA Negative (Negative); Ketones Urine Negative (Negative); Leukocyte Esterase Ur 2+ LEU/UL (Negative); Nitrate Urine Negative (Negative); Non Pathogenic Casts 0-2; Protein Urine Negative (Negative); RBC Urine 0-2 /hpf (0-2); Squamous Epithelial Cell Urine None seen /hpf (Few); Urobilinogen Urine 0.2 mg/dL (<2.0); WBC Urine >100 /hpf; pH Urine 5.5 (5.0-9.0)
[2022-07-17 21:24] LABS: Specific Grav Ur 1.055 (1.001-1.035)
[2022-07-17 21:25] LABS: Add Urine Microscopic? YES
== END 2022-07-17 22:18 | disposition home or self-care (01) ==
PROVIDERS: Emergency Provider Emergency Medicine; PCP Family Medicine
DX: S06.0XAA Concussion with loss of consciousness status unknown, initial encounter (principal); S37.011A Minor contusion of right kidney, initial encounter; S80.12XA Contusion of left lower leg, initial encounter; S49.91XA Unspecified injury of right shoulder and upper arm, initial encounter; N39.0 Urinary tract infection, site not specified; E11.9 Type 2 diabetes mellitus without complications; Z79.4 Long term (current) use of insulin; W01.190A Fall on same level from slipping, tripping and stumbling with subsequent striking against furniture, initial encounter
CPT/HCPCS: 36415; 70450; 73130; 74177; 80053; 81001; 85025; 85610; 85730; 87086; 87088; 93005; 96361; 96365; 96375; 99284; J0696; J1170; J7030; Q9967

== ENCOUNTER 2022-11-20 07:48 | Outpatient (RCR) | payer OTHER, SELFPAY ==
[2022-11-20 07:50] VITALS: BMI 30.7
== END 2023-01-23 13:48 | disposition home or self-care (01) ==
LOC: ANHWOC 07:48
PROVIDERS: PCP Family Medicine; Visit Provider Nurse Practitioner Family
DX: S31.109A Unspecified open wound of abdominal wall, unspecified quadrant without penetration into peritoneal cavity, initial encounter (principal); E11.9 Type 2 diabetes mellitus without complications
CPT/HCPCS: 99213; A9270; G0463